=== PATIENT | male | born 1980 | race Hispanic/Latino ===

== ENCOUNTER → 2018-12-11 | Outpatient (CLI) | payer BC ==
[~2018-12-11] MED LIST: ABAC300T9 PO; CAL1TABL10 PO; CARB25DR OU; DARU800T PO; DOLU50TA PO; DOXA4TAB PO; ESCI10TA54 PO; FENO145T37 PO; FLUC200T8 PO; FLUT16H NS; LORA10TA7 PO; MELO-108 PO; ONDA4TAB10 PO; OXYM-30 EN; PANT40TA25 PO; RITO100T PO; TRAM50TA4 PO; VALA100027 PO; VIT D3 PO
== END | disposition home or self-care (01) ==
LOC: RAH 10:59
PROVIDERS: ATTEND Family Medicine
DX: R14.0 Abdominal distension (gaseous) (principal); R11.2 Nausea with vomiting, unspecified
CPT/HCPCS: 78226; A9537